=== PATIENT | female | born 1970 | race African-American/Black ===

== ENCOUNTER 2016-05-13 22:05 | Observation (INO) | payer OTHER ==
[~2016-05-13] VITALS: Ht 167.6 cm; Wt 70.3 kg
[~2016-05-13 22:05] MED LIST: ASPIRIN CHILDRE81 MG PO; COUMADIN 10 MG10 MG PO; FLEXERIL10 MG PO; HYDROXYCHLOROQ200 M1 PO; WARFARIN SODIUM10 MG PO
--- NOTE | 2016-05-13 22:13 | NUR ---
PT TO ED FOR LEFT SIDED WEAKNESS, INTERMITTENT FACIAL NUMBNESS AND CHEST PRESSURE STARTING THIS MORNING, REPORTING NAUSEA WELL.
[2016-05-13 22:39] LABS: ABSOLUTE BASOPHIL COUNT 0 /CUMM (0.0-0.2); ABSOLUTE EOSINOPHIL COUNT 0.1 /CUMM (0.0-0.7); ABSOLUTE LYMPH COUNT 1.1 /CUMM (1.2-3.4); ABSOLUTE MONOCYTE COUNT 0.3 /CUMM (0.10-0.60); BASOPHIL % 0.7 % (0.0-2.0); EOSINOPHIL % 2.2 % (0-5); GRANULOCYTE % 66.2 % (42.2-75.2); MEAN CORPUSCULAR HGB 29.7 PG (27.0-31.0); MEAN CORPUSCULAR HGB CONC 33.2 G/DL (33.0-37.0); MEAN CORPUSCULAR VOLUME 89.4 FL (81.0-99.0); MEAN PLATELET VOLUME 10.7 FL (7.4-10.4); PLATELET COUNT 184 /CUMM (130-400); RBC DISTRIBUTION WIDTH 15.8 % (11.5-14.5); RED BLOOD CELL CT 4.14 /CUMM (4.20-5.40); WHITE BLOOD CELL COUNT 4.6 /CUMM (4.8-10.8)
--- NOTE | 2016-05-14 00:02 | ED CARDIAC/CP/PALPITATIONS ---
History of Present Illness General Chief Complaint: General Adult Stated Complaint: "LT SIDE FACIAL NUMBNESS,TURNER,+N," Source: patient Exam Limitations: no limitations Vital Signs & Intake/Output Vital Signs & Intake/Output Vital Signs Date Time Temp Pulse Resp B/P Pulse O2 O2 Flow FiO2 Ox Delivery Rate 05/14 0054 96.9 60 18 98/53 97 Room Air 05/13 2212 96.9 65 18 119/82 96 ED Intake and Output 05/14 0000 05/13 1200 Intake Total Output Total Balance Patient 155 lb Weight Allergies Coded Allergies: NO KNOWN ALLERGIES (05/19/14) Reconcile Medications Aspirin (Children's Aspirin) 81 MG TAB.CHEW 1 TAB PO 2XW HEART HEALTH ( Reported) CYCLOBENZAPRINE HCL (Flexeril) 10 MG TABLET 1 TAB PO TID strain Avoid operating motor vehicle or heavy machinery Hydroxychloroquine Sulfate 200 MG TABLET 1 TAB PO DAILY RA (Reported) Warfarin Sodium 10 MG TABLET 1 TAB PO QW BLOOD THINNER (Reported) Warfarin Sodium (Coumadin) 10 MG TABLET 12.5 MG PO BLOOD THINNER (Reported) Triage Note: PT TO ED FOR LEFT SIDED WEAKNESS, INTERMITTENT FACIAL NUMBNESS AND CHEST PRESSURE STARTING THIS MORNING, REPORTING NAUSEA WELL. Triage Nurses Notes Reviewed? yes Onset: Gradual Duration: day(s): Timing: recent history Quality/Severity: mild, moderate Location: central Radiation: no radiation Activities at Onset: I get it if I walk long distances Prior Chest Pain/Card Workup: no prior chest pain Modifying Factors: Improves With: rest. : No Patient currently breastfeeds: No HPI: 45-year-old woman history of rheumatoid arthritis and rheumatic fever with mitral valve replacement presents with left-sided facial numbness nausea as well as intermittent episodes of chest pressure and dyspnea on exertion for the past 3 days. Past History Travel History Traveled to [place] past 21 day No Medical History Any Pertinent Medical History? see below for history Neurological: NONE EENT: NONE Cardiovascular: MITRAL VALVE REPLACEMENT AORTIC VALVE REPLACEMENT Respiratory: NONE Gastrointestinal: NONE Hepatic: NONE Renal: NONE Musculoskeletal: rheumatoid arthritis Psychiatric: NONE Endocrine: NONE Blood Disorders: NONE Surgical History Surgical History: none Psychosocial History What is your primary language Welsh Tobacco Use: Never used ETOH Use: denies use Illicit Drug Use: denies illicit drug use Family History Hx Contributory? No Review of Systems Review of Systems Constitutional: Reports: no symptoms. EENTM: Reports: no symptoms. Respiratory: Reports: no symptoms. Cardiovascular: Reports: no symptoms. GI: Reports: no symptoms. Genitourinary: Reports: no symptoms. Musculoskeletal: Reports: no symptoms. Skin: Reports: no symptoms. Neurological/Psychological: Reports: no symptoms. Hematologic/Endocrine: Reports: no symptoms. Immunologic/Allergic: Reports: no symptoms. All Other Systems: Reviewed and Negative Physical Exam Physical Exam General Appearance: well developed/nourished, no apparent distress Head: atraumatic, normal appearance Eyes: Bilateral: normal appearance, PERRL, EOMI. Ears, Nose, Throat: normal pharynx, normal ENT inspection, hearing grossly normal Neck: normal inspection, supple, full range of motion Respiratory: normal breath sounds, chest non-tender, no respiratory distress, quiet respiration, lungs clear Cardiovascular: regular rate/rhythm, 4/6 systolic murmur Gastrointestinal: normal bowel sounds, soft, non-tender Back: normal inspection Extremities: normal inspection, normal capillary refill, normal range of motion, no edema Neurologic/Psych: no motor/sensory deficits, awake, alert, oriented x 3 Reflexes: 1+: bicep (R), bicep (L), knee (R), knee (L). Skin: intact, normal color, warm/dry Core Measures ACS in differential dx? No Severe Sepsis Present: No Septic Shock Present: No Progress Differential Diagnosis: AMI, CHF/pulm edema, costochondritis, musculoskeletal pain Plan of Care: Orders Procedure Date/time Status TROPONIN LEVEL 05/15 0125 Active EKG 05/15 0125 Active EKG 05/14 0154 Active TROPONIN LEVEL 05/14 0149 Complete Add-on Test (ER Only) 05/14 0015 Active Add-on Test (ER Only) 05/14 0003 Active PROTHROMBIN TIME 05/13 2224 Complete HUMAN BETA HCG SCREEN 05/13 2224 Complete D-DIMER 05/13 2224 Complete TROPONIN LEVEL 05/13 221 Complete COMPREHENSIVE METABOLIC PANEL 05/13 2213 Complete CBC WITHOUT DIFFERENTIAL 05/13 2213 Complete EKG 05/13 2213 Active Laboratory Tests 05/14/16 0205: Troponin I 0.01 05/13/16 2225: Anion Gap 9, Estimated GFR > 60, BUN/Creatinine Ratio 13.8, Glucose 83, Calcium 9.0, Total Bilirubin 0.9, AST 37 H, ALT 36, Alkaline Phosphatase 44, Troponin I 0.01, Total Protein 7.5, Albumin 4.0, Globulin 3.5, Albumin/Globulin Ratio 1.1, Total Beta HCG NEGATIVE, PT 50.8 *H, INR 4.91 *H, D-Dimer < 200, CBC w Diff NO MAN DIFF REQ, RBC 4.14 L, MCV 89.4, MCH 29.7, RDW 15.8 H, MPV 10.7 H, Gran % 66.2, Lymphocytes % 25.1, Monocytes % 5.8, Eosinophils % 2.2, Basophils % 0.7, Absolute Granulocytes 3.0, Absolute Lymphocytes 1.1 L, Absolute Monocytes 0.3, Absolute Eosinophils 0.1, Absolute Basophils 0, PUBS MCHC 33.2 Diagnostic Imaging: Viewed by Me: Radiology Read, CT Scan. Discussed w/RAD: Radiology Read, CT Scan. Radiology Impression: head ct... no acute disease CXR Impression: no acute findings... full report below. Initial ED EKG: normal axis, normal intervals, normal p-waves, normal QRS complex, normal sinus rhythm, no change from prior Repeat EKG: unchanged Comments: PATIENT: ROLY SCHNEIDER PRESENT AGE: 45 PATIENT ACCOUNT NO: [id number] : 70 LOCATION: [facility] ORDERING PHYSICIAN: BEAU BARROW MD SERVICE DATE: 05/14/16 EXAM TYPE: RAD - XRY-PORTABLE CHEST XRAY EXAMINATION: XR PORTABLE CHEST CLINICAL INFORMATION: Chest pain COMPARISON: 02/19/2009 TECHNIQUE: Portable AP view of the chest was obtained. FINDINGS: There is mild elevation of the right hemidiaphragm. No focal consolidation is seen. No evidence of pneumothorax, pleural effusion, or pulmonary edema. The cardiac silhouette remains mildly enlarged. Dilated main pulmonary artery is again demonstrated. Sternal wires and mediastinal clips are noted. No acute osseous findings are seen. IMPRESSION: No acute cardiopulmonary findings. Redemonstrated dilated pulmonary artery and mildly enlarged cardiac silhouette. DICTATED BY: INEZ GAYTAN MD DATE/TIME DICTATED:05/14/1657 SHAKE BACKBOARD NOTCHER:ALE DATE/TIME TRANSCRIBED:05/14/1657 CONFIDENTIAL, DO NOT COPY WITHOUT APPROPRIATE AUTHORIZATION. <Electronically signed in Other Vendor System> SIGNED BY: INEZ GAYTAN MD 05/14/16 0104 PATIENT: ROLY SCHNEIDER PRESENT AGE: 45 PATIENT ACCOUNT NO: [id number] : 70 LOCATION: [facility] ([facility]) ORDERING PHYSICIAN: BEAU BARROW MD SERVICE DATE: 05/14/16 EXAM TYPE: CAT - CT HEAD WO IV CONTRAST EXAMINATION: CT HEAD WITHOUT CONTRAST CLINICAL INFORMATION: Left-sided facial numbness COMPARISON: 11/23/2007 TECHNIQUE: Contiguous axial imaging was performed from the skull base to vertex without intravenous administration of contrast. DLP: 529.16 mGy-cm FINDINGS: There is no evidence of acute intracranial hemorrhage or territorial infarction. No abnormal mass effect or midline shift is seen. Lim to white matter differentiation is well preserved. No extra-axial fluid collections are identified. The ventricles are normal in size. There is no abnormal attenuation within the brain parenchyma. The osseous structures and soft tissues are normal. There is mild opacification of the left sphenoid sinus. The mastoid air cells are well-aerated. IMPRESSION: No acute intracranial pathology. DICTATED BY: INEZ GAYTAN MD DATE/TIME DICTATED:05/14/1645 SHAKE BACKBOARD NOTCHER:ALE DATE/TIME TRANSCRIBED:05/14/1645 CONFIDENTIAL, DO NOT COPY WITHOUT APPROPRIATE AUTHORIZATION. <Electronically signed in Other Vendor System> SIGNED BY: INEZ GAYTAN MD 05/14/16 0054 Departure Departure Disposition: STILL A PATIENT Condition: Stable Clinical Impression Primary Impression: Chest pain Secondary Impressions: Headache Referrals: PATIENT HAS NO PRIMARY CARE DR (PCP/Family) Departure Forms: Customer Survey General Discharge Information Observation Note Spoke With: SILVIA HENDRIX MD Physician Advisor Notified: JL VILLANUEVA,DENIES [facility] Patient In: Non-ED OBS Care Area Rationale for Observation: My rational for observation is as follows . pt with artificial valves with 3 days of exertional dyspnea and chest pain.... she merits an echo this am to evaluate the valves and consider medical optimization vs stress test. Critical Care Note Critical Care Note Critical Care Time: non-applicable
--- NOTE | 2016-05-14 00:04 | NUR ---
EVAL BY DR BARROW IN 3
--- NOTE | 2016-05-14 00:15 | NUR ---
PLACED ON CM= NSR SINUS HANH 56-60 NO ECTOPY
[2016-05-14 00:34] LABS: PT 50.8 SEC (9.4-12.5)
--- NOTE | 2016-05-14 00:34 | NUR ---
TO CT VIA STRETCHER.
--- NOTE | 2016-05-14 00:35 | NUR ---
CRITICAL TEST RESULTS [id number] ROLY SCHNEIDER 45 F TESTS AND RESULTS: PT 50.8, INR 4.91 Results received and read back by: KAILA SMILEY Results received date and time: 05/14/16 0035 The following provider was notified of the results, and read the results back: DR. BARROW Notified date and time: 05/14/16 at 0035
--- NOTE | 2016-05-14 00:49 | NUR ---
RETD FROM CT
--- NOTE | 2016-05-14 00:54 | CT SCAN REPORT ---
EXAMINATION: CT HEAD WITHOUT CONTRAST CLINICAL INFORMATION: Left-sided facial numbness COMPARISON: 11/23/2007 TECHNIQUE: Contiguous axial imaging was performed from the skull base to vertex without intravenous administration of contrast. DLP: 529.16 mGy-cm FINDINGS: There is no evidence of acute intracranial hemorrhage or territorial infarction. No abnormal mass effect or midline shift is seen. Lim to white matter differentiation is well preserved. No extra-axial fluid collections are identified. The ventricles are normal in size. There is no abnormal attenuation within the brain parenchyma. The osseous structures and soft tissues are normal. There is mild opacification of the left sphenoid sinus. The mastoid air cells are well-aerated. IMPRESSION: No acute intracranial pathology.
--- NOTE | 2016-05-14 01:00 | NUR ---
RESTING QUIETLY. CM = NSR 60 DENIES ANY CP AT THIS TIME.
--- NOTE | 2016-05-14 01:04 | RADIOLOGY REPORT ---
EXAMINATION: XR PORTABLE CHEST CLINICAL INFORMATION: Chest pain COMPARISON: 02/19/2009 TECHNIQUE: Portable AP view of the chest was obtained. FINDINGS: There is mild elevation of the right hemidiaphragm. No focal consolidation is seen. No evidence of pneumothorax, pleural effusion, or pulmonary edema. The cardiac silhouette remains mildly enlarged. Dilated main pulmonary artery is again demonstrated. Sternal wires and mediastinal clips are noted. No acute osseous findings are seen. IMPRESSION: No acute cardiopulmonary findings. Redemonstrated dilated pulmonary artery and mildly enlarged cardiac silhouette.
--- NOTE | 2016-05-14 01:30 | NUR ---
DR BARROW IN TO RE EVAL. REPEAT EKG AND TROP DONE.
--- NOTE | 2016-05-14 02:30 | NUR ---
SLEEPING SHORT PERIODS. AWAITING TROP DENIES ANY CP.
--- NOTE | 2016-05-14 03:50 | NUR ---
DR BARROW IN TO RE MEENU CALL PLACED TO CARDIOLOGY.
--- NOTE | 2016-05-14 04:06 | NUR ---
PT TO BE ADMITTED TELE OBS.
--- NOTE | 2016-05-14 04:35 | NUR ---
[facility] STAFF HERE TO
--- NOTE | 2016-05-14 04:38 | History & Physical ---
FELIBERTO VILLANUEVA,ESTELLA 05/14/16 0437: General Information and HPI MD Statement: I have seen and personally examined ROLY SCHNEIDER and documented this H&P. The patient is a 45 year old F who presented with a patient stated chief complaint of [chest pain on exertion]. Source of Information: patient, old records Exam Limitations: no limitations History of Present Illness: Patient is a 45-year-old female with a past medical history significant for rheumatic fever status post mitral and aortic valve replacement with [employer]. Merrick valve, rheumatoid arthritis that presents to the emergency room with a 2 day history of dyspnea and chest pain on exertion which is subsequently alleviated with rest. Patient states that she was in her usual state of health until a couple of days ago and started to notice squeezing nonradiating substernal chest pain 5 out of 10 in intensity which would get worse with physical activity and better with rest. She states that she was seen for the same problem at [facility] in 2008; a subsequent nuclear stress test per patient was negative. At present, patient is resting comfortably in a hospital bed and denies any chest pain, shortness of breath, nausea, vomiting, diarrhea, fevers, chills, recent illnesses or sick contacts. Allergies/Medications Allergies: Coded Allergies: NO KNOWN ALLERGIES (05/19/14) Home Med list Aspirin (Children's Aspirin) 81 MG TAB.CHEW 1 TAB PO 2XW HEART HEALTH ( Reported) CYCLOBENZAPRINE HCL (Flexeril) 10 MG TABLET 1 TAB PO TID strain Avoid operating motor vehicle or heavy machinery Hydroxychloroquine Sulfate 200 MG TABLET 1 TAB PO DAILY RA (Reported) Warfarin Sodium 10 MG TABLET 1 TAB PO QW BLOOD THINNER (Reported) Warfarin Sodium (Coumadin) 10 MG TABLET 12.5 MG PO BLOOD THINNER (Reported) Past History Travel History Traveled to [place] past 21 day No Medical History Neurological: NONE EENT: NONE Cardiovascular: MITRAL VALVE REPLACEMENT AORTIC VALVE REPLACEMENT Respiratory: NONE Gastrointestinal: NONE Hepatic: NONE Renal: NONE Musculoskeletal: rheumatoid arthritis Psychiatric: NONE Endocrine: NONE Blood Disorders: NONE Surgical History Surgical History: none Past Family/Social History Family History Relations & Conditions if any FATHER, ; Cause: Multiple sclerosis. Psychosocial History Primary Language: Citizen Of [place] Smoking Status: Never Smoked ETOH Use: denies use Illicit Drug Use: denies illicit drug use Functional Ability ADLs Independent: dressing, eating, toileting, bathing. IADLs Independent: shopping, housework, finances, food prep, telephone, transportation , medication admin. Review of Systems Review of Systems Constitutional: Reports: see HPI. Exam & Diagnostic Data Last 24 Hrs of Vital Signs/I&O Vital Signs Date Time Temp Pulse Resp B/P Pulse O2 O2 Flow FiO2 Ox Delivery Rate 05/14 0054 96.9 60 18 98/53 97 Room Air 05/13 2212 96.9 65 18 119/82 96 Intake & Output 05/14 0800 05/14 0000 05/13 1600 Intake Total Output Total Balance Patient 155 lb Weight Physical Exam General Appearance Alert, Oriented X3, Cooperative HEENT Atraumatic, PERRLA, EOMI Cardiovascular Normal S1, Normal S2, metallic valve click appreciated, 3/6 ALANNA Lungs Clear to Auscultation, Normal Air Movement Abdomen Normal Bowel Sounds, Soft, No Tenderness Neurological Normal Speech, Strength at 5/5 X4 Ext, Normal Tone, Sensation Intact, Cranial Nerves 3-12 NL Extremities No Clubbing, No Cyanosis, No Edema Diagnostic Data EKG Results Rate 66, NJ 184, QRS 92, QTC 461 Sinus rhythm, PACs CXR Results IMPRESSION: No acute cardiopulmonary findings. Redemonstrated dilated pulmonary artery and mildly enlarged cardiac silhouette. Other Results ct head- IMPRESSION: No acute intracranial pathology. Assessment/Plan Assessment: Assessment- 1. CP related to Angina on exertion vs costochondritis; thus far troponins have been negative 2. Hx of Rheumatic fever s/p Mitral and Aortic valve replacement; both with [facility]. Merrick's valve 3. Rhematoid arthritis Plan- Admit to [facility] Vitals per protocol Trend 1 more set of troponin/ EKG Echocardiogram Cardiology consult Maintain INR between 2.5- 3.5 Continue plaquenil Heart healthy diet Pain management pathway DVT ppx with coumadin Full code As Ranked By This Provider Problem List: 1. Chest pain syndrome 2. Chest pain 3. Headache Core Measures/Miscellaneous Acute Coronary Syndrome ACS Diagnosis: No Cerebrovascular Accident CVA/TIA Diagnosis: No Congestive Heart Failure CHF Diagnosis: No Venous Thromboembolism VTE Risk Factors: Age > 40 VTE Prophylaxis Ordered Inpt: Pharm- Warfarin No Mech VTE prophylaxis d/t: No contraindications No VTE Pharm Prophylaxis d/t: No contraindications VTE Diagnosis: No VTE Type: NONE VTE Confirmed by (Test): NONE Severe Sepsis Severe Sepsis Present: No Septic Shock Septic Shock Present: No Miscellaneous Documentation Attending Case Discussed With: Dr. Coleman Primary Care Physician: PATIENT HAS NO PRIMARY CARE DR Patient sees these Specialists in [facility] Level of Patient Care: Telemetry Resident Review Statement Resident Statement: examined this [facility]/14[facility]16 1047: Attending MD Review Statement Attending Statement Attending MD Statement: examined this patient, discuss w/resident/PA/KINDERGARTEN TEACHER, reviewed EMR data (avail), discussed with case mgmt, reviewed images, amended to note (see my note)
--- NOTE | 2016-05-14 05:10 | NUR ---
SLEEPING AT THIS TIME
--- NOTE | 2016-05-14 06:09 | NUR ---
PT ASSIGNED TO ROOM [id number]
--- NOTE | 2016-05-14 06:35 | NUR ---
REPORT CALLED TO BROWN PANTOJA
--- NOTE | 2016-05-14 06:40 | NUR ---
IV INSERTED. 0700 LABS DRAWN--SST,LAV SENT TO LAB
[2016-05-14 06:58] VITALS: BP 108/78
--- NOTE | 2016-05-14 07:00 | PN- Housestaff ---
Subjective Follow-up For: Chest pain Left facial numbness Subjective: Patient seen and examined at bedside this AM. She was reading a book comfortably in bed without distress. On review of systems, patient continued to endorse left facial numbness. She denies vision changes, tinnitus, eye tearing or headache. Patient also currently denies chest pain, palpitations or discomfort when breathing. Review of Systems Constitutional: Denies: chills, fever, malaise. EENTM: Denies: blurred vision, visual changes, hearing changes. Cardiovascular: Denies: edema, orthopena, syncope. Respiratory: Denies: cough, short of breath. Gastrointestinal: Denies: abdominal pain, constipation, diarrhea, nausea, vomiting. Genitourinary: Denies: dysuria. Musculoskeletal: Denies: back pain, neck pain. Skin: Denies: lesions. Neurological/Psychological: Reports: numbness, tingling. Denies: headache. Hematologic/Endocrine: Denies: bruising. Immunologic/Allergic: Denies: splenectomy. Objective Last 24 Hrs of Vital Signs/I&O Vital Signs Date Time Temp Pulse Resp B/P Pulse O2 O2 Flow FiO2 Ox Delivery Rate 05/14 1030 Room Air Room Air 05/14 0800 97.4 60 20 108/60 97 Room Air 05/14 0658 98.0 61 18 108/78 96 Room Air 05/14 0537 96.8 62 18 110/56 97 Room Air 05/14 0054 96.9 60 18 98/53 97 Room Air 05/14 0000 98 Room Air 05/13 2212 96.9 65 18 119/82 96 Intake & Output 05/14 1600 05/14 0800 05/14 0000 Intake Total Output Total Balance Patient 155 lb 155 lb Weight Physical Exam General Appearance: Alert, Oriented X3, Cooperative, No Acute Distress Skin: No Rashes, No Significant Lesion HEENT: Atraumatic, PERRLA, EOMI, Mucous Membr. moist/pink Neck: Supple, No thryomegaly, +2 Carotid Pulse wo Bruit Lymphatic: Cervical nl Cardiovascular: Regular Rate, +ALANNA noted most prominent in mitral area. Lungs: Clear to Auscultation, Normal Air Movement Abdomen: Normal Bowel Sounds, Soft, No Tenderness Neurological: Normal Speech, Strength at 5/5 X4 Ext, Normal Tone, Sensation Intact, Cranial Nerves 3-12 NL Extremities: No Clubbing, No Cyanosis, No Edema Vascular: Pulses Symmetrical Current Medications: Current Medications Sig/Abhijeet Start time Last Medication Dose Route Stop Time Status Admin Acetaminophen 650 MG Q6P PRN 05/14 0500 AC PO Aspirin 81 MG TuTh 05/14 0821 AC 05/14 PO 0936 Aspirin 81 MG .[2XW] 05/14 0500 DC PO Hydroxychloroquine 200 MG DAILY 05/14 1000 AC 05/14 Sulfate PO 0936 Last 24 Hrs of Lab/Eitan Results Last 24 Hrs of Labs/Mics: Laboratory Tests 05/14/16 0640: Troponin I 0.01, ESR Westergren 4 05/14/16 0205: Troponin I 0.01 05/13/16 2225: Anion Gap 9, Estimated GFR > 60, BUN/Creatinine Ratio 13.8, Glucose 83, Calcium 9.0, Total Bilirubin 0.9, AST 37 H, ALT 36, Alkaline Phosphatase 44, Troponin I 0.01, Total Protein 7.5, Albumin 4.0, Globulin 3.5, Albumin/Globulin Ratio 1.1, Total Beta HCG NEGATIVE, PT 50.8 *H, INR 4.91 *H, D-Dimer < 200, CBC w Diff NO MAN DIFF REQ, RBC 4.14 L, MCV 89.4, MCH 29.7, RDW 15.8 H, MPV 10.7 H, Gran % 66.2, Lymphocytes % 25.1, Monocytes % 5.8, Eosinophils % 2.2, Basophils % 0.7, Absolute Granulocytes 3.0, Absolute Lymphocytes 1.1 L, Absolute Monocytes 0.3, Absolute Eosinophils 0.1, Absolute Basophils 0, PUBS MCHC 33.2 Orders Radiology Findings: IMPRESSION: No acute cardiopulmonary findings. Redemonstrated dilated pulmonary artery and mildly enlarged cardiac silhouette. Miscellaneous Findings: Head CT: IMPRESSION: No acute intracranial pathology. Assessment/Plan Assessment: Ms. Cifuentes is a pleasant 45 year old female with PMH rheumatic fever status post mitral and aortic valve replacement with [employer]. Merrick valve as well as rheumatoid arthritis on plaquenil who presented to the [facility] ED with chief complaint of left-sided facial numbness/tingling as well as chest/ left subcostal pain. This pain is chronic for the patient, rated a 5/10, and is not associated with exertion. She has had prior outpatient stress tests and cardiac workup without significant findings. This left-sided facial numbness/ tingling worsened yesterday while at work in [place] and was associated with bilateral eye tearing, prompting a visit to the ED. In the ED: Vital signs showed T 96.9, HR 65, RR 18, BP 119/82 and O2 saturation of 96% on RA. Labs showed leukopenia to 4.6 (chronic), normal H&H and Plt 184. BEP was unremarkable. Troponin was 0.01. BetaHCG was negative. INR 4.91, PT 50.8. EKG showed NSR with HR 66, CT 184, QRS 92, QTC 461 and PACs. CXR was done and showed no acute cardiopulmonary findings, head CT was negative for acute intracranial pathology. Patient is admitted to the telemetry floor as an observation and the following is the management: 1. Chest pain * Troponins/EKG negative times three, ACS ruled out * Continuous telemetry monitoring has shown no arrythmias/overnight events * Echocardiogram has been cancelled as ACS ruled out and patient has close follow up with her legal compliance officer in [place] who will continue care as an outpatient 2. Left facial numbness * Head CT negative for acute intracranial pathology, ESR low to 4 * Unlikely to be TIA as no other abnormalities noted on history/exam and patient supratherapeutic in coumadin * Close follow up with PCP is recommended for continued care * Continue ASA and coumadin 3. Mitral/aortic valve replacements with supratherapeutic INR * INR supratherapeutic to 4.91, goal 2.5-3.5 * Patient will be discharged today and instructed to take her lower dose of coumadin 12.5 mg daily (instead of 15 mg) and have her INR checked by her PCP on Wednesday who will continue to manage coumadin dosing * Continue ASA * Close follow up with her oupatient legal compliance officer recommended 4. Rheumatoid arthritis * Continue plaquenil 200 mg PO daily * Tylenol for mild pain FULL CODE DVTP: Coumadin Heart Healthy Diet Mild pain pathway Problem List: 1. Chest pain syndrome 2. Headache Pain Ratin Pain Location: n/a Pain Goal: Remain pain free Pain Plan: Tylenol PO 650 mg Q6P for mild pain. Tomorrow's Labs & Rationales: None, discharge today.
[2016-05-14 08:00] VITALS: BP 108/60
--- NOTE | 2016-05-14 10:18 | Patient Discharge Instructions ---
Discharge Instructions General Discharge Information You were seen/treated for: Chest pain Left facial numbness/tingling Special Instructions: Please follow up with your PCP by early next week (Wednesday). Please follow up with your towel sorter within 1 week of discharge. Please take 12.5 mg coumadin starting today and continue this dose until your see your PCP on Wednesday and have an INR drawn. Your PCP will then determine which dose of coumadin to continue on. Have your INR checked on Wednesday05/18/16 with your PCP. Diet Recommended Diet: Heart Healthy Activity Activity Self Limited: Yes Acute Coronary Syndrome Inclusion Criteria At DC or during hospital stay patient has or had the following: ACS DIAGNOSIS No Discharge Core Measures Meds if any: Prescribed or Continued at Discharge Meds if any: NOT Prescribed or Continued at Discharge Congestive Heart Failure Inclusion Criteria At DC or during hospital stay patient has or had the following: CHF DIAGNOSIS No Discharge Core Measures Meds if any: Prescribed or Continued at Discharge Meds if any: NOT Prescribed or Continued at Discharge Cerebrovascular accident Inclusion Criteria At DC or during hospital stay patient has or had the following: CVA/TIA Diagnosis No Discharge Core Measures Meds if any: Prescribed or Continued at Discharge Meds if any: NOT Prescribed or Continued at Discharge Venous thromboembolism Inclusion Criteria VTE Diagnosis No VTE Type NONE VTE Confirmed by (Test) NONE Discharge Core Measures - Per Current guidelines, there needs to be overlap - treatment for the first 5 days of Warfarin therapy. - If discharged on Warfarin prior to 5 days of - overlap therapy, the patient will need to be - assessed for post discharge needs including - *Post discharge parental anticoagulation - *Warfarin and/or parental anticoagulation education - *Follow up date to check INR post discharge At least 5 days overlap therapy as Inpatient No Meds if any: Prescribed or Continued at Discharge Note: Overlap Therapy is Warfarin and Anticoagulant Meds if any: NOT Prescribed or Continued at Discharge
--- NOTE | 2016-05-14 10:54 | PN- Att Addend ---
Attending Addendum Attending Brief Note Patient primarily presented with the headache and nausea, now resolved. Her chest pain is atypical for cardiac etiology and tells me it has been unchanged for many years and is closely followed by her outpatient truck and transport mechanic. Head CT reveals no evidence of acute neurologic event and her neurologic exam is completely benign. Troponins are all within normal limits and telemetry shows no significant arrhythmias. She is euvolemic on exam. At this time she is stable for discharge her and instructed the to follow-up with her primary physician and outpatient truck and transport mechanic next week. She is instructed to return immediately to the hospital via 911 with any new or recurrent symptoms. We are making a slight adjustment to her Coumadin dosing as her INR is above the target and she will follow-up with her primary care physician on Wednesday for repeat INR. She has no evidence of bleeding. I have personally seen and examined this patient. I have personally reviewed all relevant imaging and laboratory data. I have discussed the case with the care team. Catrachito Bales MD [facility]
== END 2016-05-14 11:35 ==
LOC: ENRESERVTM → ENRESERVDT → ERH 22:05 → ENPENDDIS 05-14 04:17 → 1NO 05-14 04:17 → ERHI 05-14 04:17 → 1NO 05-14 06:51
PROVIDERS: Emergency Medicine; ADMIT Internal Medicine Cardiovascular Disease
DX: R07.89 Other chest pain (principal); M06.9 Rheumatoid arthritis, unspecified; R51 Headache; R11.0 Nausea; Z95.2 Presence of prosthetic heart valve; Z79.01 Long term (current) use of anticoagulants; R20.0 Anesthesia of skin
CPT/HCPCS: 2000; 93005; 93010; G0378; J3490